=== PATIENT | male | born 1945 | race Caucasian/White ===

== ENCOUNTER → 2017-01-14 | Outpatient (CLI) | payer MEDICARE ==
--- NOTE | ~2017-01-14 | CR170 ---
[facility]. [facility] [place] A Service of [facility] & [facility] RADIOLOGY TEXT RESULTS PATIENT: RYAN CARMICHAEL LOCATION: [facility] : 47 UNIT #: [id number] AGE: [address]: Pippa Talbot SEX: M ORDER DR: [id number] [address] [address] [id number] O MR#: [id number] Acc #: [id number] NAME: RYAN CARMICHAEL : 1945 SEX: M STUDY DATE/TIME: 01/14/2017 11:01 UNIT: [facility] ROOM: STUDY DESCRIPTION: CR Knee 2 Views Rt Attending Physician: Pippa Talbot A.P.R.N. Referring Physician: Pippa Talbot A.P.R.N. Ordering Physician: Pippa Talbot A.P.R.N. Primary Care Physician: Pippa Talbot A.P.R.N. MEDICAL IMAGING REPORT This report is preliminary unless electronic signature is present. EXAM Right knee, 2 views. HISTORY Anterior knee pain after a fall last week. Abrasions. FINDINGS Two views of the right knee demonstrate no fracture or dislocation. Medial joint space narrowing compatible with early degenerative change. No joint effusion. Prominent tubular structures are noted along the medial aspect of the knee and lower leg probably related to superficial varicosities. No joint effusion. IMPRESSION 1. 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 No acute findings. 2. Tubular structures along the medial knee and lower leg compatible with superficial varicosities. Dictated by... Cristina Masters M.D. THIS IS AN ELECTRONICALLY VERIFIED REPORT Cristina Masters M.D. at 01/15/2017 5:08 PM BILLY/marcelo TD: 01/15/2017 09:18 JOB #: [id number] MEDICAL IMAGING REPORT Page 1 of 1
== END | disposition home or self-care (01) ==
LOC: SRAD 10:42
DX: M25.561 Pain in right knee (principal); M17.11 Unilateral primary osteoarthritis, right knee
CPT/HCPCS: 73560